=== PATIENT | female | born 1975 | race Hispanic/Latino ===

== ENCOUNTER 2019-12-03 12:35 | Outpatient (CLI) | payer BC ==
--- NOTE | 2019-12-03 14:21 | Ultrasound Report ---
BILATERAL DIGITAL DIAGNOSTIC MAMMOGRAM WITH CAD 12/03/2019 BILATERAL COMPLETE BREAST ULTRASOUND INDICATION: The studies are being done for workup of something seen on a recent MRI of the scapula. A ccording to the patient, a mass of the left breast was described. TECHNIQUE: Digital bilateral mammographic imaging was performed. Complete ultrasound of all four (4) quadrants was performed. This examination was interpreted with the benefit of Computer-Aided Detecti on (CAD) analysis. COMPARISON: None available. FINDINGS: Breast Density: The breasts are heterogeneously dense, which may obscure small masses. MAMMOGRAPHIC FINDINGS: There is no evidence of dominant mass, suspicious calcifications or architectu ral distortion in either breast. ULTRASOUND FINDINGS: Complete sonographic evaluation of all 4 quadrants and retroareolar region was p erformed. Ultrasound of the right breast demonstrated normal structures with no mass, cyst or suspi cious shadowing. Ultrasound of the right axilla demonstrated benign-appearing lymph nodes and no susp icious lymph nodes. Ultrasound of the left breast demonstrated a few scattered benign cysts and no so lid mass or shadowing. The cyst all measure less than 1 cm. Ultrasound of the left axilla demonstrate d a benign appearing lymph nodes and no suspicious lymph nodes. IMPRESSION: Negative mammogram and negative right breast ultrasound. A few benign subcentimeter cysts of the right breast. Note: We will attempt to obtain the MRI that prompted these studies and an addendum will be added if and when that exam is reviewed. Follow up recommendation: Routine yearly BI-RADS Category 2: Benign. A "normal" or negative report should not discourage follow up or biopsy of a clinically significant f inding. A written summary of these findings will be mailed to the patient. The patient will be entered into a mammography reporting system which will generate a reminder letter for the patient's next appointmen t at the appropriate interval. According to the [employer], yearly mammograms are recommended starting at age 40 and continuing as long as a woman is in good health. Breast MRI is recommended for women with an liv roximately 20-25% or greater lifetime risk of breast cancer, including women with a strong family his tory of breast or ovarian cancer and women who have been treated for Hodgkin's disease. Signer Name: Alessio Silva MD Signed: 12/03/2019 2:17 PM Workstation Name: [id number]
== END 2019-12-03 12:36 | disposition home or self-care (01) ==
LOC: SPVWC 12:35
PROVIDERS: ATTEND Nurse Practitioner Family
DX: N60.01 Solitary cyst of right breast (principal); N60.02 Solitary cyst of left breast; N63.20 Unspecified lump in the left breast, unspecified quadrant
CPT/HCPCS: 77066